=== PATIENT | female | born 1945 | race Caucasian/White ===

== ENCOUNTER 2019-07-11 23:50 | Emergency (ER) | payer MEDICARE ==
[2019-07-12 00:07] VITALS: RESP 18
--- NOTE | 2019-07-12 00:35 | XR ---
EXAM: XR Left Shoulder Complete, 2 or More Views CLINICAL HISTORY: Pain after fall TECHNIQUE: Two or more views of the left shoulder. COMPARISON: No relevant prior studies available. FINDINGS: Bones/joints: Comminuted fracture of the humeral head with a fracture the greater tuberosity and a fracture across the surgical neck there is likely impaction on the glenoid. The glenoid is not well evaluated. Acromioclavicular joint appears intact Soft tissues: Unremarkable. IMPRESSION: Comminuted fracture of the head of the humerus with fracture through the surgical neck. There is likely impaction on the glenoid
[2019-07-12] MEDS ORDERED: MORPHINE SULFATE 4 MG/ML SYRINGE IVP STA (00:55)
--- NOTE | 2019-07-12 01:02 | ED ---
Fall HPI - General Chief Complaint: Fall Stated Complaint: Fall,shoulder injury Time Seen by Provider: 07/12/19 00:08 Source: EMS Mode of arrival: EMS - History of Present Illness Initial Comments: Dinorah is a pleasant 74 year old female who presents the emergency department today for evaluation of left shoulder pain after mechanical trip and fall at home. Patient reports that she tripped over the leg of a table and fell onto her left side. She did not hit her head she did not lose consciousness. She reports that waited 5 hours contact EMS but had persistent pain in her shoulder which prompted her come in. 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 - Related Data Allergies Allergy/AdvReac Type Severity Reaction Status Date / Time No Known Allergies Allergy Verified 07/12/19 00:07 Review of Systems ROS Statement: Those systems with pertinent positive or pertinent negative responses have been documented in the HPI. ROS Other: All systems not noted in ROS Statement are negative. Past Medical History Past Medical History: Asthma, COPD, CVA/TIA, Diabetes Mellitus, Hyperlipidemia, Hypertension, Myocardial Infarction ([place]) History of Any Multi-Drug Resistant Organisms: None Reported Past Surgical History: Section Additional Past Surgical History / Comment(s): Biopsy of neck, lumpectomy of bilt breasts. Past Psychological History: Depression Smoking Status: Current every day smoker Past Alcohol Use History: Occasional Past Drug Use History: None Reported General Exam - General Exam Comments Initial Comments: Physical Exam GENERAL: Patient is well-developed and well-nourished. Patient is nontoxic and well- hydrated and is in no distress. HENT: Normocephalic, Atraumatic. No signs of head trauma EYES: PERRL, EOMI PULMONARY: Unlabored respirations. No audible rales rhonchi or wheezing was noted. CARDIOVASCULAR: There is a regular rate and rhythm without any murmurs gallops or rubs. ABDOMEN: Soft and nontender with normal bowel sounds. SKIN: Skin is clear with no lesions or rashes and otherwise unremarkable. : Deferred NEUROLOGIC: Patient is alert and oriented x3. MUSCULOSKELETAL: Decreased range of motion left shoulder secondary to pain. Arm is neurovascularly intact distally. PSYCHIATRIC: Normal psychiatric evaluation. Limitations: no limitations Course Vital Signs 07/12/19 07/12/19 00:02 01:29 Temperature 99.3 F 98.9 F Pulse Rate 86 74 Respiratory 18 18 Rate Blood Pressure 176/75 176/86 O2 Sat by Pulse 96 97 Oximetry Medical Decision Making - Medical Decision Making The patient was seen and evaluated, history was obtained from the patient and EMS 74-year-old female with a mechanical trip and fall resulting in left upper extremity pain. X-ray confirms a humeral surgical neck fracture. She'll be placed in a sling, given morphine for pain management will be discharged home with Tylenol 3 starter pack. Advised follow-up with orthopedics for further management. Disposition Clinical Impression: Left humeral fracture Disposition: HOME SELF-CARE Condition: Stable Instructions (If sedation given, give patient instructions): Fall Prevention for Older Adults (ED), Proximal Humerus Fracture (ED) Is patient prescribed a controlled substance at d/c from ED?: No Referrals: Margi Myers MD [Primary Care Provider] - 1-2 days Marcio Garcia MD [STAFF PHYSICIAN] - 1-2 days
[2019-07-12] MEDS ORDERED: ACET/COD 300 MG/30 MG STARTER PACK 6 TAB BTL PO STA (01:03)
[2019-07-12 01:31] VITALS: BP 176/86; PULSE 74; TEMP 98.9
== END 2019-07-12 02:04 | disposition home or self-care (01) ==
LOC: EC 23:50
DX: S42.212A Unspecified displaced fracture of surgical neck of left humerus, initial encounter for closed fracture (principal); F17.200 Nicotine dependence, unspecified, uncomplicated; I25.2 Old myocardial infarction; R53.1 Weakness; Z99.89 Dependence on other enabling machines and devices; Z86.73 Personal history of transient ischemic attack (TIA), and cerebral infarction without residual deficits; W01.0XXA Fall on same level from slipping, tripping and stumbling without subsequent striking against object, initial encounter; Y92.009 Unspecified place in unspecified non-institutional (private) residence as the place of occurrence of the external cause
CPT/HCPCS: 73020; 96374; 99284; J2270

== ENCOUNTER 2021-11-21 22:37 | Emergency (ER) | payer MEDICARE ==
[2021-11-21 22:51] VITALS: TEMP 98.1
--- NOTE | 2021-11-21 23:06 | ED ---
Fall HPI - General Chief Complaint: Fall Stated Complaint: Fall Time Seen by Provider: 11/21/21 22:43 Source: patient, EMS, RN notes reviewed, old records reviewed Mode of arrival: EMS Limitations: no limitations - History of Present Illness Initial Comments: This is a 76-year-old female to the ER for evaluation. Patient had a dizziness related fall she occasionally gets dizzy especially change of position. Patient states she still backwards and hit her head denies neck pain. With ambulate has no current dizziness no headache chest pain shortness breath or abdominal pain. Patient is on blood thinners and did hit her head so she wanted evaluation. MD Complaint: fall -: hour(s) Fall From: standing When Fall Occurred: 1 hour [employer] Fall Witnessed: no Place Fall Occurred: home Loss of Consciousness: none Prolonged Down Time?: no Symptoms Prior to Fall: none Location: head Severity: mild Severity scale (1-10): 5 Quality: sharp Context: tripped/slipped, history of frequent falls Associated Symptoms: denies - Related Data Allergies Allergy/AdvReac Type Severity Reaction Status Date / Time No Known Allergies Allergy Verified 11/21/21 22:51 Review of Systems ROS Statement: Those systems with pertinent positive or pertinent negative responses have been documented in the HPI. ROS Other: All systems not noted in ROS Statement are negative. Past Medical History Past Medical History: Atrial Fibrillation, Asthma, COPD, CVA/TIA, Diabetes Mellitus, Hyperlipidemia, Hypertension, Myocardial Infarction ([place]) History of Any Multi-Drug Resistant Organisms: None Reported Past Surgical History: Section Additional Past Surgical History / Comment(s): Biopsy of neck, lumpectomy of bilt breasts. Past Psychological History: Depression Smoking Status: Former smoker Past Alcohol Use History: Occasional Past Drug Use History: None Reported General Exam Limitations: no limitations General appearance: alert, in no apparent distress Head exam: Present: atraumatic, normocephalic, normal inspection Eye exam: Present: normal appearance, PERRL, EOMI. Absent: scleral icterus, conjunctival injection, periorbital swelling ENT exam: Present: normal exam, mucous membranes moist Neck exam: Present: normal inspection. Absent: tenderness, meningismus, lymphadenopathy Respiratory exam: Present: normal lung sounds bilaterally. Absent: respiratory distress, wheezes, rales, rhonchi, stridor Cardiovascular Exam: Present: regular rate, normal rhythm, normal heart sounds. Absent: systolic murmur, diastolic murmur, rubs, gallop, clicks GI/Abdominal exam: Present: soft, normal bowel sounds. Absent: distended, tenderness, guarding, rebound, rigid Extremities exam: Present: normal inspection, full ROM, normal capillary refill. Absent: tenderness, pedal edema, joint swelling, calf tenderness Back exam: Present: normal inspection Neurological exam: Present: alert, oriented X3, CN II-XII intact Psychiatric exam: Present: normal affect, normal mood Skin exam: Present: warm, dry, intact, normal color. Absent: rash Course Vital Signs 11/21/21 11/22/21 22:45 00:21 Temperature 98.1 F Pulse Rate 106 H 87 Respiratory 16 18 Rate Blood Pressure 138/111 89/64 O2 Sat by Pulse 97 95 Oximetry - Reevaluation(s) Reevaluation #1: 11/22/21 02:54 Medical record is reviewed Reevaluation #2: 11/22/21 02:54 Patient has no recurrent dizziness no headache chest pain shortness of breath or abdominal pain 11/22/21 02:54 Patient did not have a syncopal event Reevaluation #3: 11/22/21 02:54 Patient informed results and questions answered Medical Decision Making - Medical Decision Making 76 female to the emergency department with dizziness related fall but no significant traumatic injury noted. Patient can be discharged home - EKG Data -: EKG Interpreted by Me (EKG is A. fib 91 QRS 106 QTc 479) - Radiology Data Radiology results: report reviewed (CT brain C-spine chest and pelvis x-rays are negative for traumatic injury), image reviewed Disposition Clinical Impression: Fall, Dizziness, Atrial fibrillation, Hematoma of occipital region of scalp Disposition: HOME SELF-CARE Condition: Good Instructions (If sedation given, give patient instructions): Fall Prevention for Older Adults (ED), Hematoma (ED) Is patient prescribed a controlled substance at d/c from ED?: No Referrals: Margi Simpson MD [Primary Care Provider] - 1-2 days
--- NOTE | 2021-11-21 23:16 | XR ---
EXAMINATION TYPE: XR pelvis AP view DATE OF EXAM: 11/21/2021 COMPARISON: NONE HISTORY: Fall. Pain TECHNIQUE: Single view FINDINGS: Pelvic ring is intact. Proximal femurs and hip joints are intact. Sacroiliac joints are int act. There is no hip dysplasia. IMPRESSION: Negative exam. No fracture.
--- NOTE | 2021-11-21 23:18 | XR ---
EXAMINATION TYPE: XR chest 1V DATE OF EXAM: 11/21/2021 COMPARISON: NONE HISTORY: Fall. Pain TECHNIQUE: Single view FINDINGS: Heart appears slightly enlarged. There is no heart failure. Lungs are clear of infiltrate. There are sternal wires. Bony thorax is intact. There is no sign of a pneumothorax. IMPRESSION: No active cardiopulmonary disease.
--- NOTE | 2021-11-21 23:21 | CT ---
EXAMINATION TYPE: CT brain angleine wo con DATE OF EXAM: 11/21/2021 COMPARISON: None HISTORY: fall CT DLP: 1517.8 mGycm Automated exposure control for dose reduction was used. Images of the brain and cervical spine obtained without contrast There is some patchy moderate hypodensity in the periventricular white matter. This is more noticeabl e in the left parietal lobe. There is cerebral cortical atrophy. There is no mass effect or midline s hift. There is no sign of intracranial hemorrhage. The calvarium is intact. Cervical vertebra have normal alignment. There is degenerative disc space narrowing at C5-6 and C6-7 with spurring of the endplates. There is no compression fracture. Facet joints are intact. There is m ild hypertrophic multilevel cervical facet arthropathy. The skull base is intact. There is normal aer ation of the mastoid sinuses. There is minimal mucosal thickening in the left-sided ethmoid sinus. Th ere are stents in the cervical carotid arteries noted. IMPRESSION: Cerebral atrophy and chronic small vessel ischemia. No acute intracranial abnormality. Cervical spondylotic changes. No fracture seen.
[2021-11-22 00:22] VITALS: BP 89/64; PULSE 87; RESP 18
== END 2021-11-22 00:22 | disposition home or self-care (01) ==
LOC: EC 22:37
DX: S00.03XA Contusion of scalp, initial encounter (principal); I48.91 Unspecified atrial fibrillation; J44.9 Chronic obstructive pulmonary disease, unspecified; E11.9 Type 2 diabetes mellitus without complications; I25.2 Old myocardial infarction; I10 Essential (primary) hypertension; Z87.891 Personal history of nicotine dependence; W01.0XXA Fall on same level from slipping, tripping and stumbling without subsequent striking against object, initial encounter; Z91.81 History of falling; Y92.009 Unspecified place in unspecified non-institutional (private) residence as the place of occurrence of the external cause
CPT/HCPCS: 70450; 71045; 72125; 72170; 93005; 99284